=== PATIENT | male | born 1955 | race Caucasian/White ===

== ENCOUNTER 2017-11-16 09:50 | Emergency (ER) | payer MEDICAID ==
[~2017-11-16] VITALS: Ht 175.3 cm; Wt 90.7 kg
[~2017-11-16 09:50] MED LIST: AMIO200T33 PO; ASP81EC PO; ENA2.5T PO; FURO20TA PO; HYDR-4683 PO; METO25TA5 PO; POT20T PO; TAM04C PO; WARF3TAB20 PO
[2017-11-16 11:12] LABS: Basophils # (auto) 0 uL; Basophils % (auto) 0.4 % (0.0-2.0); Eosinophils # (auto) 0.4 uL; Eosinophils % (auto) 4.2 % (0.0-7.0); Hematocrit 44.7 % (41.0-53.0); Hemoglobin 14.6 g/dL (13.5-17.5); Lymphocytes # (auto) 1.5 uL; Lymphocytes % (auto) 15.2 % (10.0-50.0); Mean Corpuscular Hemoglobin 28.6 pg (28.0-32.0); Mean Corpuscular Hgb Conc. 32.6 g/dL (32.0-36.0); Mean Corpuscular Volume 87.9 fL (80.0-100.0); Mean Platelet Volume 9.4 fL (6.9-10.8); Monocytes # (auto) 0.8 uL; Monocytes % (auto) 7.8 % (0.0-12.0); Neutrophils # (auto) 7.1 uL; Neutrophils % (auto) 72.4 % (37.0-80.0); Nucleated Red Blood Cells % 0.1 %; Platelet Count (auto) 167 10^3/uL (140-450); Red Cell Distribution Width 15.2 % (11.8-14.3); White Blood Cell 9.8 10^3/uL (4.4-10.8)
[2017-11-16 11:36] LABS: Albumin 3.8 g/dL (3.4-5.0); Alkaline Phosphatase 112 U/L (45-117); Anion Gap 6 (5-15); Aspartate Aminotransferase 16 U/L (15-37); BUN/Creatinine Ratio 15.4; Bilirubin, Total 0.4 mg/dL (0.2-1.0); Blood Urea Nitrogen 28 mg/dL (7-18); Calcium 8.9 mg/dL (8.5-10.1); Carbon Dioxide 27 mmol/L (21-32); Chloride 104 mmol/L (98-107); GFR African American 49 mL/min; GFR Non-African American 40 mL/min; Glucose 106 mg/dL (74-106); Magnesium 2.3 mg/dL (1.6-2.6); Potassium 4.7 mmol/L (3.5-5.1); Sodium 137 mmol/L (136-145)
[2017-11-16 12:03] VITALS: BP 145/61
== END 2017-11-16 18:26 | disposition left against medical advice (07) ==
LOC: ER 09:57
DX: R10.9 Unspecified abdominal pain (principal); Z53.21 Procedure and treatment not carried out due to patient leaving prior to being seen by health care provider
CPT/HCPCS: 36415; 80053; 83735; 84484; 85025; 93005

== ENCOUNTER 2017-12-07 14:25 | Emergency (ER) | payer MEDICAID ==
[~2017-12-07] VITALS: Ht 175.3 cm; Wt 90.7 kg
[2017-12-07 14:45] VITALS: BP 128/70
== END 2017-12-07 17:09 | disposition home or self-care (01) ==
LOC: ER 14:25
DX: T83.098A Other mechanical complication of other urinary catheter, initial encounter (principal); N39.0 Urinary tract infection, site not specified; E11.9 Type 2 diabetes mellitus without complications; F17.210 Nicotine dependence, cigarettes, uncomplicated; Z79.01 Long term (current) use of anticoagulants; Z79.82 Long term (current) use of aspirin; Z79.899 Other long term (current) drug therapy
CPT/HCPCS: 51702

== ENCOUNTER 2017-12-26 06:43 | Emergency (ER) | payer MEDICAID ==
[~2017-12-26] VITALS: Ht 175.3 cm; Wt 93.0 kg
[2017-12-26 07:17] VITALS: BP 126/61
== END 2017-12-26 07:31 | disposition home or self-care (01) ==
LOC: ER 06:43
DX: T83.031A Leakage of indwelling urethral catheter, initial encounter (principal); I10 Essential (primary) hypertension; E11.9 Type 2 diabetes mellitus without complications; F17.210 Nicotine dependence, cigarettes, uncomplicated; Z95.1 Presence of aortocoronary bypass graft; Z79.01 Long term (current) use of anticoagulants; Z79.82 Long term (current) use of aspirin; Z79.899 Other long term (current) drug therapy; Z46.6 Encounter for fitting and adjustment of urinary device
CPT/HCPCS: 51702; J7060

== ENCOUNTER 2020-08-14 15:07 | Inpatient (IN) | payer BC, MEDICAID ==
[~2020-08-14] VITALS: Ht 175.3 cm; Wt 88.5 kg
[~2020-08-14 15:07] MED LIST changes: -ASP81EC PO; +ASPI-394 PO; +ATOR20TA50 PO; +DOXY-346 PO; -ENA2.5T PO; +ENAL2.5T11 PO; +FURO1TAB33 PO; -FURO20TA PO; -HYDR-4683 PO; +HYDR-4833 PO; +TICA90TA PO
[2020-08-14 15:45] LABS: Basophils # (auto) 0.1 10 ^3/uL (0-0.2); Basophils % (auto) 0.3 % (0.0-2.0); Eosinophils # (auto) 0 10 ^3/uL (0-0.8); Eosinophils % (auto) 0.1 % (0.0-7.0); Hematocrit 40.2 % (41.0-53.0); Hemoglobin 13.1 g/dL (13.5-17.5); Lymphocytes # (auto) 0.3 10 ^3/uL (0.4-5.4); Lymphocytes % (auto) 1.4 % (10.0-50.0); Mean Corpuscular Hemoglobin 28.6 pg (28.0-32.0); Mean Corpuscular Hgb Conc. 32.6 g/dL (32.0-36.0); Mean Corpuscular Volume 87.6 fL (80.0-100.0); Monocytes # (auto) 0.5 10 ^3/uL (0-1.3); Monocytes % (auto) 2.6 % (0.0-12.0); Neutrophils # (auto) 19.6 10 ^3/uL (1.6-8.6); Neutrophils % (auto) 95.6 % (37.0-80.0); Nucleated Red Blood Cells % 0.1 %; Platelet Count (auto) 127 10^3/uL (140-450); Red Blood Cells 4.59 10^6/uL (4.5-5.90); Red Cell Distribution Width 14.6 % (11.8-14.3); White Blood Cell 20.6 10^3/uL (4.4-10.8)
[2020-08-14 16:00] LABS: Albumin 2.9 g/dL (3.4-5.0); Anion Gap 10 (5-15); Blood Urea Nitrogen 33 mg/dL (7-18); Calcium 8.8 mg/dL (8.5-10.1); Carbon Dioxide 23 mmol/L (21-32); Chloride 92 mmol/L (98-107); Glucose 230 mg/dL (74-106); Potassium 4.7 mmol/L (3.5-5.1); Sodium 125 mmol/L (136-145)
[2020-08-14 16:05] LABS: Alanine Aminotransferase 11 U/L (16-61); Alkaline Phosphatase 89 U/L (45-117); Aspartate Aminotransferase 9 U/L (15-37); BUN/Creatinine Ratio 15.8; Bilirubin, Total 0.6 mg/dL (0.2-1.0); GFR African American 41 mL/min; GFR Non-African American 34 mL/min; Total Protein 7.3 g/dL (6.4-8.2)
[2020-08-14 17:44] LABS: Urine Bacteria MANY /hpf (None Seen); Urine Blood 1+ /uL (Negative); Urine Mucus FEW (None Seen); Urine Specific Gravity 1.017 (1.001-1.035); Urine WBC 73 /hpf (0 - 3)
[2020-08-14] MEDS ORDERED: cefTRIAXone 1GM/50ML D5W 50 ML IV ONE ×2 (17:56→18:00)
[2020-08-14] MEDS ORDERED: AZITHROMYCIN 500MG/ 250ML 250 ML IV ONE (18:00)
[2020-08-14] MEDS ORDERED: SODIUM CHLORIDE 0.9% 1,000 ML IV ONE ×2 (18:30→20:00)
[2020-08-14] MEDS ORDERED: ACETAMINOPHEN 500 MG TAB PO ONE (20:00)
[2020-08-14] MEDS ORDERED: DexAMETHasone SOD PHOS 10MG/1ML VIAL INJ IV ONE (20:00)
[2020-08-14] MEDS: SODIUM CHLORIDE 0.9% 1,000 ML IV SCH (20:29)
[2020-08-14] MEDS ORDERED: ALBUTEROL SULF 2.5 MG/0.5ML(0.5%) NEB SOLN NEB PRN (20:30)
[2020-08-14] MEDS ORDERED: MORPHINE SULF INJ 2 MG/ML SYRINGE 1ML IV PRN (20:30)
[2020-08-14] MEDS ORDERED: ONDANSETRON HCL 4 MG/2 ML VIAL IV PRN (20:30)
[2020-08-14] MEDS ORDERED: HYDROcodone-ACET 5/325MG TAB PO PRN (20:30)
[2020-08-14] MEDS ORDERED: IPRATROPIUM BROM 0.5 MG/2.5ML INH SOL NEB PRN (20:30)
[2020-08-14] MEDS ORDERED: ACETAMINOPHEN 325 MG TAB PO PRN (20:30)
[2020-08-14] MEDS ORDERED: NITROGLYCERIN 0.4 MG SL TAB SL PRN (20:30)
[2020-08-14] MEDS ORDERED: DEXTROSE (50%) 50ML SYRG IV PRN (20:30)
[2020-08-14] MEDS: CARVEDILOL 3.125 MG TAB PO SCH (21:30)
[2020-08-14] MEDS ORDERED: METOPROLOL TARTRATE 1MG/1ML-5ML VIAL IV PRN (22:30)
[2020-08-15 00:20] VITALS: BP 103/70
--- NOTE | 2020-08-15 00:20 | NUR ---
Telemetry admit from ER [facility] admitted to Telemetry unit after SBAR received. Patient oriented to TOMMY LACEY RN primary RN, unit, room, bed, and unit policies regarding patient care and visiting hours. Patient now on continuous telemetry monitoring, tele box # 1 and telemetry reading on arrival to unit is Sinus tach at 121. Patient placed on bedside oxygen, weighed by bedscale and encouraged to call if they need something. All questions and concerns addressed, patient verbalized understanding.
[2020-08-15] MEDS: InsuLIN REG 1unit/0.01ml Soln (100units/ml) SC SCH ×7 (01:02→23:37)
[2020-08-15 02:00] VITALS: BP 103/70
--- NOTE | 2020-08-15 03:32 | NUR ---
Patient has negative result for covid-19. Patient will be transferred 17B. Report given to Laila.
[2020-08-15] MEDS: ACCU-CHEK COMFORT CURVE STRIP VI SCH ×7 (04:00→23:33)
[2020-08-15 05:00] VITALS: BP 117/71
--- NOTE | 2020-08-15 05:06 | NUR ---
Transfer patient to [facility]. No distress noted at time of transfer.
--- NOTE | 2020-08-15 05:12 | NUR ---
Patient transferred from [facility] from [facility]. Assumed care of patient, awake and alert. No S/S of distress/SOB or pain. Bed in lowest position, call light within reach. Instructed on POC and to call for assist PRN, will continue to monitor for changes Q1hr and PRN.
[2020-08-15 06:34] LABS: Basophils # (auto) 0 10 ^3/uL (0-0.2); Basophils % (auto) 0.1 % (0.0-2.0); Eosinophils # (auto) 0 10 ^3/uL (0-0.8); Hematocrit 38.7 % (41.0-53.0); Hemoglobin 12.4 g/dL (13.5-17.5); Lymphocytes # (auto) 0.4 10 ^3/uL (0.4-5.4); Lymphocytes % (auto) 2.2 % (10.0-50.0); Mean Corpuscular Hgb Conc. 32.1 g/dL (32.0-36.0); Mean Corpuscular Volume 87.2 fL (80.0-100.0); Monocytes # (auto) 0.7 10 ^3/uL (0-1.3); Monocytes % (auto) 3.9 % (0.0-12.0); Neutrophils # (auto) 15.8 10 ^3/uL (1.6-8.6); Neutrophils % (auto) 93.8 % (37.0-80.0); Platelet Count (auto) 125 10^3/uL (140-450); Red Blood Cells 4.44 10^6/uL (4.5-5.90); Red Cell Distribution Width 14.8 % (11.8-14.3); White Blood Cell 16.8 10^3/uL (4.4-10.8)
[2020-08-15 06:54] LABS: Calcium 8.2 mg/dL (8.5-10.1); Potassium 4.2 mmol/L (3.5-5.1)
[2020-08-15 06:57] LABS: BUN/Creatinine Ratio 22.2
[2020-08-15] MEDS: SODIUM CHLORIDE 0.9% 1,000 ML IV SCH ×2 (07:59→16:26)
[2020-08-15 09:00] VITALS: BP 115/68
[2020-08-15] MEDS: PANTOPRAZOLE 40 MG/10 ML VIAL INJ IV SCH (09:35)
[2020-08-15] MEDS: cefTRIAXone 1GM/50ML D5W 50 ML IV SCH (09:36)
[2020-08-15] MEDS: CARVEDILOL 3.125 MG TAB PO SCH ×2 (09:37→22:00)
[2020-08-15] MEDS ORDERED: DexAMETHasone SOD PHOS 10MG/1ML VIAL INJ IV SCH (10:00)
--- NOTE | 2020-08-15 10:40 | NUR ---
Dr. Koch paged for Diet order, awaiting to call jose martin.
--- NOTE | 2020-08-15 14:06 | NUR ---
Per Radiology , patient can have lunch now and NPO after for Pyelogram. Patient notified, verbalized understanding.
--- NOTE | 2020-08-15 15:14 | NUR ---
Dr. Rodríguez at bedside discussed with patient and per MD will do EGD on Wed. Addendum: 08/15/20 at 1515 by MAAME CHANG RN Wrong patient.
--- NOTE | 2020-08-15 15:35 | NUR ---
ss consult Per consult information on advanced directive. Patient has been provided with advanced directive by bedside nurse. Addendum: 08/15/20 at 1536 by Esperanza Butler Amended: Links added.
--- NOTE | 2020-08-15 16:00 | NUR ---
PT REPORTS THAT HE WALKS FINE AND DOES NOT NEED P.T.
--- NOTE | 2020-08-15 16:16 | NUR ---
Jacquelyn FLAME CUTTING SUPERVISOR for Dr. MYERS at bedside stated patient is clear from Urology point of view and patient will have to follow as out patient.
[2020-08-15 17:00] VITALS: BP 105/71
[2020-08-15] MEDS ORDERED: IOHEXOL 300 MG/ML 100ML BOTTLE IJ ONE (17:17)
--- NOTE | 2020-08-15 17:24 | NUR ---
Patient left unit to Radiology.
[2020-08-15 22:00] VITALS: BP 107/48
--- NOTE | 2020-08-15 22:42 | NUR ---
Respiratory note: PT SEEN AND ASSESSED FOR PRN MED NEB TX AT 2242. TX IS NOT INDICATED AT THIS TIME TIME. PT DISPLAYING NO SIGNS OF RESPIRATORY DISTRESS. HR 74 RR 18 SP02 97% ON ROOM AIR.
[2020-08-16] MEDS: SODIUM CHLORIDE 0.9% 1,000 ML IV SCH ×2 (02:29→11:07)
[2020-08-16] MEDS: ACCU-CHEK COMFORT CURVE STRIP VI SCH ×3 (04:00→11:06)
[2020-08-16] MEDS: InsuLIN REG 1unit/0.01ml Soln (100units/ml) SC SCH ×3 (04:55→11:04)
[2020-08-16 05:00] VITALS: BP 99/53
[2020-08-16 05:49] LABS: Basophils # (auto) 0 10 ^3/uL (0-0.2); Eosinophils # (auto) 0 10 ^3/uL (0-0.8); Hematocrit 37.7 % (41.0-53.0); Hemoglobin 12.5 g/dL (13.5-17.5); Lymphocytes # (auto) 0.5 10 ^3/uL (0.4-5.4); Lymphocytes % (auto) 3.4 % (10.0-50.0); Mean Corpuscular Hemoglobin 28.6 pg (28.0-32.0); Mean Corpuscular Hgb Conc. 33.1 g/dL (32.0-36.0); Mean Corpuscular Volume 86.2 fL (80.0-100.0); Monocytes # (auto) 0.6 10 ^3/uL (0-1.3); Monocytes % (auto) 3.9 % (0.0-12.0); Neutrophils # (auto) 14.2 10 ^3/uL (1.6-8.6); Neutrophils % (auto) 92.7 % (37.0-80.0); Platelet Count (auto) 165 10^3/uL (140-450); Red Blood Cells 4.37 10^6/uL (4.5-5.90); Red Cell Distribution Width 14.9 % (11.8-14.3); White Blood Cell 15.3 10^3/uL (4.4-10.8)
[2020-08-16 06:11] LABS: Calcium 8.6 mg/dL (8.5-10.1); Potassium 4.7 mmol/L (3.5-5.1)
[2020-08-16 06:14] LABS: BUN/Creatinine Ratio 27.1
--- NOTE | 2020-08-16 07:09 | NUR ---
End of Shift Note Endorsed care to dayshift RN. At this time patient has no s/s of distress or SOB.
[2020-08-16 08:49] VITALS: BP 112/70
[2020-08-16] MEDS: PANTOPRAZOLE 40 MG/10 ML VIAL INJ IV SCH (09:17)
[2020-08-16] MEDS: cefTRIAXone 1GM/50ML D5W 50 ML IV SCH (09:17)
[2020-08-16] MEDS: CARVEDILOL 3.125 MG TAB PO SCH (09:18)
[2020-08-16] MEDS ORDERED: ENOXAPARIN SOD 40 MG/0.4 ML SYRINGE SC SCH (10:00)
[2020-08-16] MEDS ORDERED: levoFLOXacin 500MG 100 ML IV SCH (10:00)
[2020-08-16 12:30] VITALS: BP 100/70
--- NOTE | 2020-08-16 13:20 | NUR ---
Left a message to Dr. Koch regarding patient left AMA.
--- NOTE | 2020-08-16 13:22 | NUR ---
CN notified regarding patient left AMA.
--- NOTE | 2020-08-16 13:23 | NUR ---
AMA Note CHANTEL TATE states they want to leave the hospital Against Medical Advice (AMA). Patient encouraged to stay for further treatment/stabilization. Dr. Koch notified of patient's wishes. Patient advised of the risks and benefits of leaving AMA. Patient verbalized understanding. Patient encouraged to return to the ER if symptoms do not improve or worsen.
== END 2020-08-16 13:10 | disposition left against medical advice (07) | DRG 194 ==
LOC: ER 15:07 → TELE 15:08 → TELE-EAST 23:25 → TELE-CENTR 08-15 05:05
PROVIDERS: ADMIT Hospitalist; ATTEND Hospitalist
DX: J18.9 Pneumonia, unspecified organism (principal); J98.11 Atelectasis; E87.1 Hypo-osmolality and hyponatremia; N13.6 Pyonephrosis; E11.22 Type 2 diabetes mellitus with diabetic chronic kidney disease; N18.3 Chronic kidney disease, stage 3 (moderate); D72.829 Elevated white blood cell count, unspecified; R09.02 Hypoxemia; E11.65 Type 2 diabetes mellitus with hyperglycemia; E78.5 Hyperlipidemia, unspecified; Z20.828 Contact with and (suspected) exposure to other viral communicable diseases; Z53.29 Procedure and treatment not carried out because of patient's decision for other reasons; F17.210 Nicotine dependence, cigarettes, uncomplicated; K57.90 Diverticulosis of intestine, part unspecified, without perforation or abscess without bleeding; I12.9 Hypertensive chronic kidney disease with stage 1 through stage 4 chronic kidney disease, or unspecified chronic kidney disease; I25.10 Atherosclerotic heart disease of native coronary artery without angina pectoris; I70.8 Atherosclerosis of other arteries; K40.20 Bilateral inguinal hernia, without obstruction or gangrene, not specified as recurrent; Z80.8 Family history of malignant neoplasm of other organs or systems; Z83.3 Family history of diabetes mellitus; Z95.1 Presence of aortocoronary bypass graft; Z79.01 Long term (current) use of anticoagulants
CPT/HCPCS: 36415; 71045; 71046; 74176; 74177; 80048; 80053; 80061; 81001; 82728; 82962; 83036; 83605; 83615; 83880; 84484; 85025; 87040; 87086; 87426; C9113; G0378; J0696; J1100; J1815; J1956

== ENCOUNTER 2020-09-11 05:16 | Emergency (ER) | payer BC, MEDICAID ==
[~2020-09-11] VITALS: Ht 175.3 cm; Wt 89.8 kg
[~2020-09-11 05:16] MED LIST changes: -FURO1TAB33 PO; -HYDR-4833 PO; -TAM04C PO; -TICA90TA PO; -WARF3TAB20 PO
[2020-09-11 06:43] LABS: Basophils # (auto) 0 10 ^3/uL (0-0.2); Basophils % (auto) 0.6 % (0.0-2.0); Eosinophils # (auto) 0.2 10 ^3/uL (0-0.8); Eosinophils % (auto) 3.7 % (0.0-7.0); Hematocrit 37.8 % (41.0-53.0); Hemoglobin 12.7 g/dL (13.5-17.5); Lymphocytes # (auto) 1.1 10 ^3/uL (0.4-5.4); Lymphocytes % (auto) 18.7 % (10.0-50.0); Mean Corpuscular Hemoglobin 29.4 pg (28.0-32.0); Mean Corpuscular Hgb Conc. 33.5 g/dL (32.0-36.0); Mean Corpuscular Volume 87.8 fL (80.0-100.0); Monocytes # (auto) 0.5 10 ^3/uL (0-1.3); Neutrophils # (auto) 3.9 10 ^3/uL (1.6-8.6); Nucleated Red Blood Cells % 0.2 %; Platelet Count (auto) 129 10^3/uL (140-450); Red Blood Cells 4.31 10^6/uL (4.5-5.90); Red Cell Distribution Width 15.1 % (11.8-14.3); White Blood Cell 5.7 10^3/uL (4.4-10.8)
[2020-09-11 06:57] LABS: Albumin 3.3 g/dL (3.4-5.0); Anion Gap 6 (5-15); Blood Urea Nitrogen 21 mg/dL (7-18); Calcium 8.5 mg/dL (8.5-10.1); Carbon Dioxide 24 mmol/L (21-32); Chloride 108 mmol/L (98-107); Glucose 106 mg/dL (74-106); Magnesium 2.3 mg/dL (1.6-2.6); Potassium 4.3 mmol/L (3.5-5.1); Sodium 138 mmol/L (136-145)
[2020-09-11 07:05] LABS: Alanine Aminotransferase 17 U/L (16-61); Alkaline Phosphatase 92 U/L (45-117); Aspartate Aminotransferase 11 U/L (15-37); BUN/Creatinine Ratio 14.9; Bilirubin, Total 0.3 mg/dL (0.2-1.0); GFR African American 65 mL/min; GFR Non-African American 54 mL/min; Total Protein 6.5 g/dL (6.4-8.2)
[2020-09-11 07:33] LABS: INR 1.02 (0.9-1.15); Partial Thromboplastin Time 27.6 sec (23.0-31.2)
[2020-09-11 11:08] LABS: Alcohol, Urine < 3.0 mg/dL (0-10); Amphetamine Screen, Urine POSITIVE (NEGATIVE); Barbiturate Scree,Urine NEGATIVE (NEGATIVE); Benzodiazephine Screen, Urine NEGATIVE (NEGATIVE); Cannabinoid Screen, Urine NEGATIVE (NEGATIVE); Cocaine Screen, Urine NEGATIVE (NEGATIVE); Opiate Scree,Urine NEGATIVE (NEGATIVE); Phencyclidine Screen, Urine NEGATIVE (NEGATIVE)
[2020-09-11 11:53] VITALS: BP 123/76
[2020-09-11 12:34] LABS: Urine Bacteria FEW /hpf (None Seen); Urine Blood Negative /uL (Negative); Urine Specific Gravity 1.011 (1.001-1.035); Urine WBC 5 /hpf (0 - 3)
[2020-09-11] MEDS ORDERED: cefTRIAXone 1GM/50ML D5W 50 ML IV ONE (12:45)
[2020-09-11] MEDS ORDERED: cefTRIAXone SOD 1,000 MG VL ONE (12:46)
== END 2020-09-11 13:37 | disposition home or self-care (01) ==
LOC: ER 05:16 → EDUNIT# 05:16 → EDBD 05:16 → ER 13:37
DX: T83.89XA Other specified complication of genitourinary prosthetic devices, implants and grafts, initial encounter (principal); I25.708 Atherosclerosis of coronary artery bypass graft(s), unspecified, with other forms of angina pectoris; N39.0 Urinary tract infection, site not specified; E11.21 Type 2 diabetes mellitus with diabetic nephropathy; F15.10 Other stimulant abuse, uncomplicated; E11.9 Type 2 diabetes mellitus without complications; I10 Essential (primary) hypertension; J44.9 Chronic obstructive pulmonary disease, unspecified; Z79.899 Other long term (current) drug therapy
CPT/HCPCS: 36415; 71045; 80053; 80307; 81001; 83735; 83880; 84443; 84484; 85025; 85610; 85730; 93005; 96365; 99285; J0696; J7040; J7060

== ENCOUNTER 2020-10-20 18:09 | Emergency (ER) | payer BC, MEDICAID ==
[~2020-10-20] VITALS: Ht 175.3 cm; Wt 93.0 kg
[2020-10-20 19:50] VITALS: BP 107/62
== END 2020-10-20 21:13 | disposition left against medical advice (07) ==
LOC: ER 18:09
DX: Z77.21 Contact with and (suspected) exposure to potentially hazardous body fluids (principal); Z53.21 Procedure and treatment not carried out due to patient leaving prior to being seen by health care provider

== ENCOUNTER 2021-05-23 14:24 | Inpatient (IN) | payer BC, MEDICAID ==
[~2021-05-23] VITALS: Ht 175.3 cm; Wt 101.6 kg
[2021-05-23] MEDS ORDERED: methylPREDNISolone SOD SUCC 125 MG/2 ML VL IV ONE (14:30)
[2021-05-23] MEDS ORDERED: cefTRIAXone 1GM/50ML D5W 50 ML IV ONE (14:30)
[2021-05-23] MEDS ORDERED: AZITHROMYCIN 500MG/ 250ML 250 ML IV ONE (14:30)
[2021-05-23] MEDS ORDERED: IPRATROPIUM BROM 0.5 MG/2.5ML INH SOL NEB ONE (14:30)
[2021-05-23] MEDS ORDERED: ALBUTEROL SULF 2.5 MG/0.5ML(0.5%) NEB SOLN NEB ONE (14:30)
[2021-05-23] MEDS ORDERED: MAGNESIUM SULFATE 1GM/100ML 100 ML IV ONE (14:45)
[2021-05-23 15:06] LABS: Basophils # (auto) 0.1 10 ^3/uL (0-0.2); Basophils % (auto) 0.5 % (0.0-2.0); Eosinophils # (auto) 0.4 10 ^3/uL (0-0.8); Eosinophils % (auto) 4.4 % (0.0-7.0); Hematocrit 39.3 % (41.0-53.0); Hemoglobin 13.3 g/dL (13.5-17.5); Lymphocytes # (auto) 1.2 10 ^3/uL (0.4-5.4); Lymphocytes % (auto) 11.8 % (10.0-50.0); Mean Corpuscular Hemoglobin 29.8 pg (28.0-32.0); Mean Corpuscular Hgb Conc. 33.8 g/dL (32.0-36.0); Mean Corpuscular Volume 88.1 fL (80.0-100.0); Monocytes # (auto) 0.8 10 ^3/uL (0-1.3); Monocytes % (auto) 7.5 % (0.0-12.0); Neutrophils # (auto) 7.6 10 ^3/uL (1.6-8.6); Neutrophils % (auto) 75.8 % (37.0-80.0); Platelet Count (auto) 123 10^3/uL (140-450); Red Blood Cells 4.46 10^6/uL (4.5-5.90); Red Cell Distribution Width 14.4 % (11.8-14.3)
[2021-05-23 15:24] LABS: Albumin 3.3 g/dL (3.4-5.0); Anion Gap 8 (5-15); Blood Urea Nitrogen 44 mg/dL (7-18); Carbon Dioxide 21 mmol/L (21-32); Chloride 107 mmol/L (98-107); Glucose 250 mg/dL (74-106); Potassium 4.2 mmol/L (3.5-5.1); Sodium 136 mmol/L (136-145)
[2021-05-23 15:25] LABS: Alanine Aminotransferase 21 U/L (16-61); Aspartate Aminotransferase 16 U/L (15-37); BUN/Creatinine Ratio 21.2; GFR African American 42 mL/min; GFR Non-African American 34 mL/min
[2021-05-23 15:30] LABS: Alkaline Phosphatase 104 U/L (45-117); Bilirubin, Total 0.4 mg/dL (0.2-1.0); Total Protein 6.7 g/dL (6.4-8.2)
[2021-05-23] MEDS ORDERED: ALBUTEROL SULF 2.5 MG/0.5ML(0.5%) NEB SOLN NEB PRN (18:15)
[2021-05-23] MEDS ORDERED: HYDROcodone-ACET 5/325MG TAB PO PRN (18:15)
[2021-05-23] MEDS ORDERED: IPRATROPIUM BROM 0.5 MG/2.5ML INH SOL NEB PRN (18:15)
[2021-05-23] MEDS ORDERED: ACETAMINOPHEN 325 MG TAB PO PRN (18:15)
[2021-05-23] MEDS ORDERED: NITROGLYCERIN 0.4 MG SL TAB SL PRN (18:15)
[2021-05-23] MEDS ORDERED: MORPHINE SULF INJ 2 MG/ML SYRINGE 1ML IV PRN ×2 (18:15)
[2021-05-23] MEDS ORDERED: ONDANSETRON HCL 4 MG/2 ML VIAL IV PRN (18:15)
[2021-05-23 19:09] VITALS: BP 114/69
[2021-05-23 19:52] VITALS: BP 124/63
[2021-05-23 20:30] LABS: Basophils # (auto) 0 10 ^3/uL (0-0.2); Basophils % (auto) 0.1 % (0.0-2.0); Eosinophils # (auto) 0 10 ^3/uL (0-0.8); Eosinophils % (auto) 0.5 % (0.0-7.0); Hematocrit 39.3 % (41.0-53.0); Hemoglobin 13.5 g/dL (13.5-17.5); Lymphocytes # (auto) 0.3 10 ^3/uL (0.4-5.4); Lymphocytes % (auto) 3.5 % (10.0-50.0); Mean Corpuscular Hgb Conc. 34.2 g/dL (32.0-36.0); Mean Corpuscular Volume 87.7 fL (80.0-100.0); Monocytes # (auto) 0.1 10 ^3/uL (0-1.3); Monocytes % (auto) 1.4 % (0.0-12.0); Neutrophils # (auto) 8.2 10 ^3/uL (1.6-8.6); Neutrophils % (auto) 94.5 % (37.0-80.0); Platelet Count (auto) 111 10^3/uL (140-450); Red Blood Cells 4.48 10^6/uL (4.5-5.90); Red Cell Distribution Width 14.2 % (11.8-14.3); White Blood Cell 8.7 10^3/uL (4.4-10.8)
[2021-05-23 20:42] LABS: Albumin 3.4 g/dL (3.4-5.0); Calcium 8.2 mg/dL (8.5-10.1); Magnesium 2.5 mg/dL (1.6-2.6); Potassium 4.6 mmol/L (3.5-5.1)
[2021-05-23 20:44] LABS: BUN/Creatinine Ratio 20.2
[2021-05-23 20:47] LABS: Bilirubin, Total 0.3 mg/dL (0.2-1.0); Total Protein 7.2 g/dL (6.4-8.2)
[2021-05-23] MEDS ORDERED: IPRATROPIUM BROM 0.5 MG/2.5ML INH SOL NEB SCH (22:00)
[2021-05-23] MEDS ORDERED: InsuLIN REG 1unit/0.01ml Soln (100units/ml) SC SCH (22:00)
[2021-05-23] MEDS ORDERED: ALBUTEROL SULF 2.5 MG/0.5ML(0.5%) NEB SOLN NEB SCH (22:00)
[2021-05-24] MEDS ORDERED: methylPREDNISolone SOD SUCC 40 MG/ML VL IV SCH (06:00)
[2021-05-24] MEDS ORDERED: AZITHROMYCIN 500MG/ 250ML 250 ML IV SCH (10:00)
[2021-05-24] MEDS ORDERED: PANTOPRAZOLE 40 MG TAB PO SCH (10:00)
[2021-05-24] MEDS ORDERED: cefTRIAXone 1GM/50ML D5W 50 ML IV SCH (10:00)
[2021-05-24] MEDS ORDERED: ENOXAPARIN SOD 40 MG/0.4 ML SYRINGE SC SCH (10:00)
== END 2021-05-23 21:55 | disposition left against medical advice (07) | DRG 193 ==
LOC: ER 14:24 → EDBD 14:24 → TELE 18:01
PROVIDERS: ADMIT Internal Medicine; ATTEND Internal Medicine
DX: J18.9 Pneumonia, unspecified organism (principal); J96.01 Acute respiratory failure with hypoxia; J44.1 Chronic obstructive pulmonary disease with (acute) exacerbation; J98.11 Atelectasis; J44.0 Chronic obstructive pulmonary disease with (acute) lower respiratory infection; Z20.822 Contact with and (suspected) exposure to COVID-19; E11.22 Type 2 diabetes mellitus with diabetic chronic kidney disease; N18.30 Chronic kidney disease, stage 3 unspecified; I25.10 Atherosclerotic heart disease of native coronary artery without angina pectoris; F17.210 Nicotine dependence, cigarettes, uncomplicated; J98.4 Other disorders of lung; Z53.29 Procedure and treatment not carried out because of patient's decision for other reasons; I12.9 Hypertensive chronic kidney disease with stage 1 through stage 4 chronic kidney disease, or unspecified chronic kidney disease; Z95.1 Presence of aortocoronary bypass graft; I25.2 Old myocardial infarction; Z80.8 Family history of malignant neoplasm of other organs or systems; Z83.3 Family history of diabetes mellitus; Z95.0 Presence of cardiac pacemaker; Z79.899 Other long term (current) drug therapy
CPT/HCPCS: 36415; 71045; 80053; 82962; 83735; 83880; 84484; 85025; 87426; 93005; 94640; 96365; 96366; 96368; 96375; G0378; J0696

== ENCOUNTER 2021-06-02 01:26 | Emergency (ER) | payer BC, MEDICAID ==
[~2021-06-02] VITALS: Ht 175.3 cm; Wt 100.7 kg
[2021-06-02 02:36] LABS: Basophils # (auto) 0.1 10 ^3/uL (0-0.2); Basophils % (auto) 0.9 % (0.0-2.0); Eosinophils # (auto) 0.2 10 ^3/uL (0-0.8); Eosinophils % (auto) 1.3 % (0.0-7.0); Hematocrit 43.6 % (41.0-53.0); Hemoglobin 14.6 g/dL (13.5-17.5); Lymphocytes # (auto) 1.2 10 ^3/uL (0.4-5.4); Lymphocytes % (auto) 10.4 % (10.0-50.0); Mean Corpuscular Hemoglobin 29.2 pg (28.0-32.0); Mean Corpuscular Hgb Conc. 33.5 g/dL (32.0-36.0); Mean Corpuscular Volume 87.2 fL (80.0-100.0); Monocytes # (auto) 0.6 10 ^3/uL (0-1.3); Monocytes % (auto) 5.5 % (0.0-12.0); Neutrophils # (auto) 9.6 10 ^3/uL (1.6-8.6); Neutrophils % (auto) 81.9 % (37.0-80.0); Red Cell Distribution Width 14.5 % (11.8-14.3); White Blood Cell 11.7 10^3/uL (4.4-10.8)
[2021-06-02 02:45] LABS: Alcohol, Urine < 3.0 mg/dL (0-10); Amphetamine Screen, Urine POSITIVE (NEGATIVE); Barbiturate Scree,Urine NEGATIVE (NEGATIVE); Benzodiazephine Screen, Urine NEGATIVE (NEGATIVE); Cannabinoid Screen, Urine NEGATIVE (NEGATIVE); Cocaine Screen, Urine NEGATIVE (NEGATIVE); Opiate Scree,Urine NEGATIVE (NEGATIVE); Phencyclidine Screen, Urine NEGATIVE (NEGATIVE)
[2021-06-02 02:52] LABS: Urine Bacteria MANY /hpf (None Seen); Urine Blood 1+ /uL (Negative); Urine Specific Gravity 1.016 (1.001-1.035); Urine WBC 165 /hpf (0 - 3); Urine WBC Clumps PRESENT /hpf (None Seen)
[2021-06-02 02:54] LABS: INR 1.03 (0.9-1.15); Partial Thromboplastin Time 29.1 sec (23.0-31.2)
[2021-06-02 02:57] LABS: Alanine Aminotransferase 23 U/L (16-61); Albumin 3.8 g/dL (3.4-5.0); Amylase 36 U/L (25-115); Anion Gap 6 (5-15); Aspartate Aminotransferase 16 U/L (15-37); BUN/Creatinine Ratio 15.7; Blood Urea Nitrogen 31 mg/dL (7-18); Calcium 9.1 mg/dL (8.5-10.1); Carbon Dioxide 24 mmol/L (21-32); Chloride 109 mmol/L (98-107); GFR African American 44 mL/min; GFR Non-African American 37 mL/min; Glucose 172 mg/dL (74-106); Lipase 53 U/L (73-393); Magnesium 2.1 mg/dL (1.6-2.6); Potassium 4.2 mmol/L (3.5-5.1); Sodium 139 mmol/L (136-145)
[2021-06-02 02:58] LABS: Acetaminophen < 2.0 ug/mL (10-30)
[2021-06-02 03:06] LABS: Alkaline Phosphatase 96 U/L (45-117); Bilirubin, Total 0.3 mg/dL (0.2-1.0); Blood Alcohol < 3.0 mg/dL (0-5); Total Protein 7.7 g/dL (6.4-8.2)
[2021-06-02] MEDS ORDERED: cefTRIAXone 1GM/50ML D5W 50 ML IV ONE (07:15)
[2021-06-02] MEDS ORDERED: SODIUM CHLORIDE 0.9% 1,000 ML IV ONE ×2 (07:15)
[2021-06-02 08:00] VITALS: BP 129/76
== END 2021-06-02 09:10 | disposition home or self-care (01) ==
LOC: ER 01:26 → EDBD 01:26 → ER 09:10
DX: N39.0 Urinary tract infection, site not specified (principal); F15.10 Other stimulant abuse, uncomplicated; K56.7 Ileus, unspecified; J44.9 Chronic obstructive pulmonary disease, unspecified; I25.10 Atherosclerotic heart disease of native coronary artery without angina pectoris; E11.9 Type 2 diabetes mellitus without complications; I10 Essential (primary) hypertension; I25.2 Old myocardial infarction; F17.210 Nicotine dependence, cigarettes, uncomplicated; Z95.1 Presence of aortocoronary bypass graft; Z95.0 Presence of cardiac pacemaker; Z79.82 Long term (current) use of aspirin; Z79.2 Long term (current) use of antibiotics; Z79.899 Other long term (current) drug therapy
CPT/HCPCS: 36415; 71046; 74176; 80053; 80307; 80320; 80329; 81001; 82150; 83605; 83690; 83735; 84484; 85025; 85049; 85610; 85730; 87040; 93005; 96365; 99285; J0696; J7030; 87077

== ENCOUNTER 2021-07-29 20:34 | Emergency (ER) | payer BC, MEDICAID ==
[~2021-07-29] VITALS: Ht 175.3 cm; Wt 99.8 kg
[2021-07-29 20:35] VITALS: BP 148/82
== END 2021-07-30 06:54 | disposition left against medical advice (07) ==
LOC: ER 20:35
DX: R51.9 Headache, unspecified (principal); M54.5 Low back pain; Z53.21 Procedure and treatment not carried out due to patient leaving prior to being seen by health care provider
CPT/HCPCS: 70450; 72131

== ENCOUNTER 2022-06-21 05:08 | Emergency (ER) | payer OTHER, MEDICAID ==
[~2022-06-21] VITALS: Ht 175.3 cm; Wt 103.0 kg
[2022-06-21 06:28] LABS: Basophils # (auto) 0 10 ^3/uL (0-0.2); Basophils % (auto) 0.4 % (0.0-2.0); Eosinophils # (auto) 0.4 10 ^3/uL (0-0.8); Eosinophils % (auto) 3.5 % (0.0-7.0); Hematocrit 45.6 % (41.0-53.0); Hemoglobin 14.9 g/dL (13.5-17.5); Lymphocytes # (auto) 1.4 10 ^3/uL (0.4-5.4); Lymphocytes % (auto) 13.8 % (10.0-50.0); Mean Corpuscular Hemoglobin 28.6 pg (28.0-32.0); Mean Corpuscular Hgb Conc. 32.7 g/dL (32.0-36.0); Mean Corpuscular Volume 87.4 fL (80.0-100.0); Monocytes # (auto) 0.8 10 ^3/uL (0-1.3); Monocytes % (auto) 7.9 % (0.0-12.0); Neutrophils # (auto) 7.8 10 ^3/uL (1.6-8.6); Neutrophils % (auto) 74.4 % (37.0-80.0); Nucleated Red Blood Cells % 0.1 %; Red Blood Cells 5.22 10^6/uL (4.5-5.90); Red Cell Distribution Width 14.1 % (11.8-14.3); White Blood Cell 10.4 10^3/uL (4.4-10.8)
[2022-06-21 06:35] LABS: Alanine Aminotransferase 20 U/L (16-61); Albumin 3.6 g/dL (3.4-5.0); Amylase 31 U/L (25-115); Anion Gap 7 (5-15); Aspartate Aminotransferase 19 U/L (15-37); BUN/Creatinine Ratio 14.2; Blood Urea Nitrogen 25 mg/dL (7-18); Calcium 8.4 mg/dL (8.5-10.1); Carbon Dioxide 24 mmol/L (21-32); Chloride 104 mmol/L (98-107); GFR African American 50 mL/min; GFR Non-African American 42 mL/min; Glucose 164 mg/dL (74-106); Lipase 73 U/L (73-393); Magnesium 1.8 mg/dL (1.6-2.6); Potassium 4.7 mmol/L (3.5-5.1); Sodium 135 mmol/L (136-145)
[2022-06-21 06:37] LABS: Alkaline Phosphatase 105 U/L (45-117); Bilirubin, Total 0.6 mg/dL (0.2-1.0)
[2022-06-21] MEDS ORDERED: MORPHINE SULFATE 4 MG/ML SYR/VIAL IV ONE (06:45)
[2022-06-21] MEDS ORDERED: SODIUM CHLORIDE 0.9% 500 ML IV ONE (06:45)
[2022-06-21] MEDS ORDERED: ONDANSETRON HCL 4 MG/2 ML VIAL IV ONE (06:45)
[2022-06-21] MEDS ORDERED: TRAM-297 PO (10:22)
[2022-06-21 10:28] VITALS: BP 103/71
== END 2022-06-21 10:36 | disposition home or self-care (01) ==
LOC: EDBD 05:08 → EDUNIT# 05:08 → ER 05:08
DX: K40.90 Unilateral inguinal hernia, without obstruction or gangrene, not specified as recurrent (principal); K80.20 Calculus of gallbladder without cholecystitis without obstruction; J44.9 Chronic obstructive pulmonary disease, unspecified; E11.9 Type 2 diabetes mellitus without complications; E78.5 Hyperlipidemia, unspecified; I25.2 Old myocardial infarction; Z88.1 Allergy status to other antibiotic agents
CPT/HCPCS: 36415; 71045; 74176; 80053; 82150; 83690; 83735; 85025; 96361; 96374; 96375; 99285; J2270; J2405; J7030